=== PATIENT | female | born 1960 | race Caucasian/White ===

== ENCOUNTER 2019-05-28 06:00 | Day surgery (SDC) | payer OTHER ==
[~2019-05-28] VITALS: Ht 175.3 cm; Wt 76.1 kg
[~2019-05-28 06:00] MED LIST: METF500T24 PO; [UNRECOGNIZED DRUG - OTHER]
[2019-05-28 07:02] VITALS: Ht 175.3 cm; Wt 76.1 kg
[2019-05-28 08:00] VITALS: BP 142/78; PULSE 69; RESP 20
[2019-05-28] MEDS ORDERED: FENTAnyl 50 MCG/ML VIAL ONE (09:16)
[2019-05-28] MEDS ORDERED: MIDAZOLAM 1 MG/ML 2 ML INJ ONE ×2 (09:16)
[2019-05-28 09:18] VITALS: BP 96/57; RESP 20
== END 2019-05-28 14:10 | disposition home or self-care (01) ==
LOC: GIL 06:00
PROVIDERS: ATTEND Internal Medicine Gastroenterology
DX: R19.5 Other fecal abnormalities (principal); K64.8 Other hemorrhoids; K44.9 Diaphragmatic hernia without obstruction or gangrene; K21.9 Gastro-esophageal reflux disease without esophagitis; K29.60 Other gastritis without bleeding; E11.9 Type 2 diabetes mellitus without complications
CPT/HCPCS: 43239; 45378; 82962; 88305; 88312; J2250; J3010; Z7610